=== PATIENT | female | born 1950 | race Caucasian/White ===

== ENCOUNTER 2017-07-31 12:00 | Emergency (ER) | payer OTHER ==
[2017-07-31 12:12] VITALS: RESP 16; TEMP 98.2
[2017-07-31] MEDS ORDERED: TDAP ADULT 0.5 ML INJ (BOOSTRIX) IM ONE (12:13)
[2017-07-31] MEDS ORDERED: LET GEL TOPICAL 1 EA SYR TP ONE (12:13)
--- NOTE | 2017-07-31 13:06 | EDPHY ---
H & P Time Seen by Provider: 07/31/17 12:22 HPI/ROS: 66-year-old female accidentally stabbed herself with a box feeder to her right lower leg. No numbness or tingling in her leg. She minute we washed it out after the accident. Review of systems As per HPI General no fever no chills no weakness HEENT no eye pain no eye discharge. No eye redness, no sore throat Respiratory no cough, no shortness of breath Cardiac no chest pain, no peripheral edema GI no abdominal pain, no diarrhea, no constipation, no nausea, no vomiting no flank pain, no hematuria, no dysuria Musculoskeletal no myalgias, no joint pain Heme no easy bruising, no easy bleeding Endo no polyuria, no polydipsia Skin no rashes, no pruritus Neuro no syncope, no dizziness, no headaches Psych is no suicidal ideation, no homicidal ideation Past Medical/Surgical History: Diabetes type 2 Social History: No excessive alcohol or drug use Smoking Status: Former smoker Physical Exam: Alert and oriented in no acute distress nontoxic appearance, afebrile Atraumatic normocephalic Neck no JVD Lungs clear to auscultation, no respiratory distress Heart regular rate and rhythm Extremities no cyanosis clubbing edema Right lower extremity 2 cm laceration at medial aspect of lower leg No foreign body No muscle involvement The pulses intact Full range of motion of ankle foot digits Constitutional: Initial Vital Signs Temperature (C) 36.8 C 07/31/17 12:06 Heart Rate 87 07/31/17 12:06 Respiratory Rate 16 07/31/17 12:06 Blood Pressure 172/100 H 07/31/17 12:06 O2 Sat (%) 94 07/31/17 12:06 O2 Delivery Mode Room Air Allergies/Adverse Reactions: No Known Allergies Allergy (Unverified 07/31/17 12:12) Home Medications: Medication Instructions Recorded Metformin HCl 07/31/17 Medical Decision Making Procedures: Procedure note-laceration The wound was irrigated with copious amounts of saline. Lidocaine 1% was used for local anesthetic. 4 simple interrupted sutures were placed. 4-0 Ethilon was used. Patient tolerated procedure well. ED Course/Re-evaluation: Patient seen and evaluated for laceration to right lower extremity from a box feeder. Impression Right lower leg laceration Plan Sutured care Return in 10 days for suture removal - Data Points Medications Given: Discontinued Medications Diphtheria/Tetanus/Acell Pertussis (Boostrix) 0.5 ml IM .ONCE ONE Stop: 07/31/17 12:14 Last Admin: 07/31/17 12:19 Dose: 0.5 ml Tetracaine/Epinephrine/Lidocaine (Let Gel Topical) 1 ea TP EDNOW ONE Stop: 07/31/17 12:14 Last Admin: 07/31/17 12:18 Dose: 1 ea Departure - Departure Disposition: Home, Routine, Self-Care Clinical Impression: Laceration of lower leg, right Condition: Good Instructions: Care For Your Stitches (ED), Laceration (ED) Additional Instructions: Return in 10 days for suture removal Referrals: JOSÉ MIGUEL LANDERS [Primary Care Provider] - As per Instructions
[2017-07-31 13:45] VITALS: BP 168/98; PULSE 85; O2SAT 95
== END 2017-07-31 13:44 | disposition home or self-care (01) ==
LOC: CED 12:00
PROC: 0HQKXZZ Repair Right Lower Leg Skin, External Approach (ICD-10-PCS; principal; 2017-07-31)
DX: S81.811A Laceration without foreign body, right lower leg, initial encounter (principal); E11.9 Type 2 diabetes mellitus without complications; Z87.891 Personal history of nicotine dependence; Z23 Encounter for immunization; Z79.84 Long term (current) use of oral hypoglycemic drugs; W26.0XXA Contact with knife, initial encounter; Y92.69 Other specified industrial and construction area as the place of occurrence of the external cause; Y99.0 Civilian activity done for income or pay; Y93.89 Activity, other specified